=== PATIENT | male | born 1935 | race Caucasian/White ===

== ENCOUNTER 2017-12-28 09:04 | Emergency (ER) | payer OTHER, MEDICAID ==
[~2017-12-28] VITALS: Ht 162.6 cm; Wt 57.2 kg
[2017-12-28 09:12] VITALS: BP_SYST 150
[2017-12-28] MEDS ORDERED: KETOROLAC TROMETHAMINE 30 MG VIAL IM ONE (09:30)
[2017-12-28 10:40] VITALS: BP_SYST 150
== END 2017-12-28 10:41 | disposition home or self-care (01) ==
LOC: SED 09:04
DX: M17.0 Bilateral primary osteoarthritis of knee (principal); E11.9 Type 2 diabetes mellitus without complications; I10 Essential (primary) hypertension; Z95.0 Presence of cardiac pacemaker
CPT/HCPCS: 73560; 96372; 99283; J1885; 99284

== ENCOUNTER 2018-11-18 18:18 | Emergency (ER) | payer OTHER, MEDICAID ==
[~2018-11-18] VITALS: Ht 165.1 cm; Wt 62.6 kg
[2018-11-18 18:30] VITALS: BP_SYST 139
[2018-11-18] MEDS: DIPH-TET-PERTUS Vaccine 0.5 ML VIAL (ADACEL) I.M. ONE (21:55)
[2018-11-18 22:02] VITALS: BP_SYST 132
== END 2018-11-18 22:04 | disposition home or self-care (01) ==
LOC: SED 18:18
DX: S51.801A Unspecified open wound of right forearm, initial encounter (principal); E11.9 Type 2 diabetes mellitus without complications; I10 Essential (primary) hypertension; Z95.0 Presence of cardiac pacemaker; W22.8XXA Striking against or struck by other objects, initial encounter; Y93.89 Activity, other specified; Y92.511 Restaurant or cafe as the place of occurrence of the external cause; Y99.8 Other external cause status
CPT/HCPCS: 90715; 99283; J7030